=== PATIENT | female | born 1965 | race African-American/Black ===

== ENCOUNTER 2020-07-21 18:21 | Emergency (ER) | payer MEDICAID ==
[~2020-07-21] VITALS: Ht 152.4 cm; Wt 81.0 kg
[2020-07-21] MEDS ORDERED: KETOROLAC 60MG/2ML VIAL IM ONE (18:45)
[2020-07-21] MEDS ORDERED: TRAM50TA3 MT (18:49)
[2020-07-21 18:52] VITALS: BP 160/81
== END 2020-07-21 21:01 | disposition home or self-care (01) ==
LOC: ER 18:21
DX: M54.5 Low back pain (principal); Z98.890 Other specified postprocedural states; Z98.51 Tubal ligation status
CPT/HCPCS: 72100; 96372; 99283; J1885

== ENCOUNTER 2020-09-04 13:18 | Emergency (ER) | payer MEDICAID ==
[~2020-09-04] VITALS: Ht 157.5 cm; Wt 77.0 kg
[~2020-09-04 13:18] MED LIST: TRAM50TA3 MT
[2020-09-04 13:23] VITALS: BP 155/80
[2020-09-04] MEDS ORDERED: IBUP-2030 MT (13:50)
[2020-09-04] MEDS ORDERED: METH-773 MT (13:50)
[2020-09-04] MEDS ORDERED: KETOROLAC 60MG/2ML VIAL IM ONE (14:00)
== END 2020-09-04 14:15 | disposition home or self-care (01) ==
LOC: ER 13:18
DX: G89.29 Other chronic pain (principal); M54.40 Lumbago with sciatica, unspecified side; Z98.51 Tubal ligation status; Z98.890 Other specified postprocedural states
CPT/HCPCS: 96372; 99283; J1885

== ENCOUNTER 2022-03-12 09:29 | Emergency (ER) | payer MEDICAID ==
[~2022-03-12] VITALS: Ht 167.6 cm; Wt 85.0 kg
[~2022-03-12 09:29] MED LIST changes: +IBUP-2030 MT; +METH-773 MT
[2022-03-12] MEDS ORDERED: CYCLOBENZAPRINE 10MG TABLET PO ONE (10:45)
[2022-03-12] MEDS ORDERED: KETOROLAC 30MG/ML VIAL IM ONE (10:45)
[2022-03-12 10:48] VITALS: BP 145/85
[2022-03-12] MEDS ORDERED: NAP5EC MT (11:30)
[2022-03-12] MEDS ORDERED: CYCL10TA21 MT (11:30)
== END 2022-03-12 11:45 | disposition home or self-care (01) ==
LOC: ER 09:29
DX: M25.552 Pain in left hip (principal); M54.30 Sciatica, unspecified side; J45.909 Unspecified asthma, uncomplicated; Z98.890 Other specified postprocedural states
CPT/HCPCS: 73502; 96372; 99283; J1885